=== PATIENT | male | born 1960 | race Caucasian/White ===

== ENCOUNTER → 2024-09-06 13:43 | Outpatient (REF) | payer BC, SELFPAY ==
--- NOTE | 2024-09-06 15:27 | CARDSERVLU ---
Echocardiogram with Lumason completed after protocol screening completed. Allergies verified.
Patent IV site: __left hand___
IV site flushed with 0.9% NaCl pre and post administration.
Diluted bolus method utilized to enhance visualization of ventricular pierre.
Total volume given: 6.0____ mL
Patient tolerated all procedures well without complications.
# 22 sammie placed left hand. Lumason given. INT d/c'd. pressure held. No bleeding noted.
== END ==
LOC: RCS 13:43
PROVIDERS: ATTENDING PHYSICIAN Internal Medicine Cardiovascular Disease
DX: I10 Essential (primary) hypertension (principal); I25.10 Atherosclerotic heart disease of native coronary artery without angina pectoris
CPT/HCPCS: 93306; Q9950